=== PATIENT | female | born 1990 | race Caucasian/White ===

== ENCOUNTER 2022-07-22 05:54 | Inpatient (IN) | payer BC ==
[2022-07-22] MEDS ORDERED: METHYLERGONOVINE 0.2 MG/ML 1 ML AMP IM PRN (06:13)
[2022-07-22] MEDS ORDERED: LIDOCAINE 0.5% (PF) 5 MG/ML (50 ML SDV) SQ PRN (06:13)
[2022-07-22] MEDS ORDERED: TRANEXAMIC ACID IN NACL,ISO-OS 1,000 MG in EMPTY BAG 1 BAG IV PRN (06:13)
[2022-07-22] MEDS ORDERED: miSOPROStoL 200 MCG TAB PO PRN (06:13)
[2022-07-22] MEDS ORDERED: TERBUTALINE 1 MG/ML VIAL SQ PRN (06:13)
[2022-07-22] MEDS ORDERED: CARBOPROST TROMETHAMINE 250 MCG/ML 1 ML AMP IM PRN (06:13)
[2022-07-22] MEDS ORDERED: OXYTOCIN 10 UNIT/ML 1 ML VIAL IM PRN (06:13)
[2022-07-22 06:22] VITALS: RESP 16
[2022-07-22] MEDS: LACTATED RINGERS 1,000 ML IV SCH ×2 (06:25→20:21)
[2022-07-22] MEDS: OXYTOCIN 30 UNITS/500 ML NS 30 UNIT in SALINE 1 500ML.BAG IV SCH ×3 (06:38→17:47)
[2022-07-22 06:40] LABS: Basophils # (A) 0.1 k/uL (0-0.2); Basophils % (A) 1 %; Eosinophils # (A) 0.2 k/uL (0-0.7); Eosinophils % (A) 1 %; HGB 12.7 gm/dL (11.4-16.0); Lymphocytes # (A) 2.2 k/uL (1.0-4.8); Lymphocytes % (A) 18 %; MCHC 33.3 g/dL (31.0-37.0); Mean Platelet Volume 7.8; Monocytes # (A) 0.8 k/uL (0-1.0); Monocytes % (A) 6 %; Neutrophils # (A) 9.2 k/uL (1.3-7.7); Neutrophils % (A) 72 %; Platelet Count 215 k/uL (150-450); RBC 3.84 m/uL (3.80-5.40); RDW 12.8 % (11.5-15.5); WBC 12.8 k/uL (3.8-10.6)
--- NOTE | 2022-07-22 06:58 | P.HPOB ---
History of Present Illness H&P Date: 07/22/22 Chief Complaint: Here for induction of labor at 40-3/7 weeks', favorable cervix This is a 31-year-old female 2 para 0010 EDC 07/19/2022 at 40-3/7 weeks' gestation who presents today for induction with favorable cervix. Fetus is been active throughout the . She denies fluid leakage or vaginal bleeding. Past medical history is negative. Past surgical history D&C in the past for miscarriage. Current medications vitamins daily. ALLERGIES none known. Family history significant for stroke, diabetes, hypertension, autism. Social history patient is , she has never been a smoker, she denies alcohol or drug use. history significant for blood type O+, rubella status immune. Pap smear, VDRL testing, urine culture, gonorrhea and chlamydia cultures, hepatitis B surface antigen, HIV testing, group B strep cultures all negative. One-hour Glucola 109. On exam patient is 5 foot 5 inches, 189 pounds, blood pressure 116/71. The general physical exam is within normal limits. The cervix is 3 cm dilated, 70% effaced, -2 station, vertex presentation. Artificial amniorrhexis reveals clear fluid. heart rate is in the 130s with frequent accelerations consistent with reactive NST. Irregular uterine contractions are noted. Impression: 40-3/7 weeks intrauterine , favorable cervix, here for induction of labor. All signs reassuring. Plan: Oxytocin per hospital protocol. Close maternal and surveillance. Analgesic options reviewed. Anticipate normal spontaneous vaginal delivery. Review of Systems Constitutional: Reports as per HPI Past Medical History Past Medical History: No Reported History History of Any Multi-Drug Resistant Organisms: None Reported Additional Past Surgical History / Comment(s): D&C Past Anesthesia/Blood Transfusion Reactions: No Reported Reaction Past Psychological History: No Psychological Hx Reported Smoking Status: Never smoker Past Drug Use History: None Reported Medications and Allergies Home Medications Medication Instructions Recorded Confirmed Type Vit No.179/Iron/Folic 1 each PO DAILY 07/22/22 07/22/22 History [ Tablet] Allergies Allergy/AdvReac Type Severity Reaction Status Date / Time No Known Allergies Allergy Verified 07/22/22 06:12 Exam Vital Signs Temp Pulse Resp BP Pulse Ox 07/22/22 06:11 96.8 F L 96 16 116/71 98 Intake and Output 07/21/22 07/21/22 07/22/22 14:59 22:59 06:59 Other: Weight 85.729 kg See dictation under HPI. Results Result Diagrams: 07/22/22 06:20 Abnormal Lab Results - Last 24 Hours (Table) 07/22/22 Range/Units 06:20 WBC 12.8 H (3.8-10.6) k/uL Neutrophils # 9.2 H (1.3-7.7) k/uL Assessment and Plan Assessment: 40-3/7 weeks intrauterine , here for induction of labor. All signs reassuring. Plan: Oxytocin per hospital protocol. Close maternal and surveillance. Analgesic options reviewed. Anticipate normal spontaneous vaginal delivery. Time with Patient: Less than 30
--- NOTE | 2022-07-22 17:14 | P.PROBDLV ---
Vaginal Delivery Note - . Vaginal Delivery Note: This is a 31-year-old female 2 para 0010 EDC 07/19/2022 at 40-3/7 weeks' gestation who presented for induction with favorable cervix. Group B strep cultures negative, blood type O positive, rubella status immune. Please see my dictated history and physical for details. Artificial amniorrhexis revealed clear fluid. Oxytocin was started and titrated per hospital protocol. Epidural was placed per her request. Patient progressed well through the first stage of labor and became completely dilated at 1635 hrs. Perineal body was prepped and draped in usual sterile fashion. With excellent maternal expulsive efforts the 's head delivered occiput anterior and he restituted accordingly. There was a tight nuchal cord that was reduced on the perineum. The left or anterior shoulder was delivered easily from underneath the pubic symphysis at which time the oropharynx, nasopharynx, and external nares were all bulb suctioned. Patient was officially delivered of a liveborn male infant at 1655 hours. Umbilical cord was doubly clamped and ligated, he was handed to waiting nurses for evaluation where scores of 48 and 9 at one and 5 and 10 minutes respectively were given. Placenta delivered spontaneously, it was inspected and noted to be intact with trivascular cord at 1659 hrs. Uterus is then massaged. Oxytocin was given. Careful inspection of the cervix, vagina, perineum, periurethral, and perirectal areas revealed a small midline first-degree laceration, easily repaired in the usual fashion using the peak suture. Total estimated blood loss 250 mL's. Fundus is firm and in the midline upon completion of delivery. 's weight 7 lbs. 13 oz. or 3550 g. Patient and her are requesting circumcision for their son.
[2022-07-22] MEDS ORDERED: BENZOCAINE/MENTHOL SPRAY 1 GM/SPRAY AEROSOL TOPICAL PRN (17:15)
[2022-07-22] MEDS ORDERED: ZOLPIDEM 5 MG TAB PO PRN (17:15)
[2022-07-22] MEDS ORDERED: diphenhydrAMINE 50 MG CAP PO PRN (17:15)
[2022-07-22] MEDS ORDERED: diphenhydrAMINE 25 MG CAP PO PRN (17:15)
[2022-07-22] MEDS ORDERED: SIMETHICONE 80 MG CHEWABLE PO PRN (17:15)
[2022-07-22] MEDS ORDERED: LANOLIN CREAM 5 GM TUBE TOPICAL PRN (17:15)
[2022-07-22] MEDS ORDERED: diphenhydrAMINE 50 MG/ML 1 ML VIAL IVP PRN ×2 (17:15)
[2022-07-22] MEDS ORDERED: HYDROCORTISONE 2.5% RECTAL CREAM 30 GM TUBE RECTAL PRN (17:15)
[2022-07-22] MEDS: SENNOSIDES-DOCUSATE SODIUM 1 EACH TAB PO SCH (19:55)
[2022-07-22] MEDS: IBUPROFEN 600 MG TAB PO SCH (20:00)
[2022-07-23] MEDS: IBUPROFEN 600 MG TAB PO SCH ×3 (01:17→15:29)
[2022-07-23 07:31] LABS: Basophils # (A) 0.1 k/uL (0-0.2); Basophils % (A) 0 %; Eosinophils # (A) 0.2 k/uL (0-0.7); Eosinophils % (A) 1 %; HGB 11.4 gm/dL (11.4-16.0); Lymphocytes # (A) 2.3 k/uL (1.0-4.8); Lymphocytes % (A) 13 %; MCH 33.5 pg (25.0-35.0); MCHC 33.5 g/dL (31.0-37.0); MCV 100.1 fL (80.0-100.0); Mean Platelet Volume 7.8; Monocytes % (A) 6 %; Neutrophils # (A) 13.8 k/uL (1.3-7.7); Neutrophils % (A) 78 %; Platelet Count 216 k/uL (150-450); RBC 3.39 m/uL (3.80-5.40); RDW 12.9 % (11.5-15.5); WBC 17.6 k/uL (3.8-10.6)
[2022-07-23] MEDS: SENNOSIDES-DOCUSATE SODIUM 1 EACH TAB PO SCH (08:12)
[2022-07-23 08:44] VITALS: BP 102/69; TEMP 97.7
--- NOTE | 2022-07-23 08:58 | P.DS ---
Providers Date of admission: 07/22/22 05:54 Expected date of discharge: 07/23/22 Attending physician: Kristina Jimenez Primary care physician: Stated None Hospital Course: This is a 31-year-old female 2 para 0010 presented at 40-3/7 weeks for induction. is unremarkable, group B strep cultures negative, blood type O positive, rubella status immune. Please see my dictated history and physical for details. With oxytocin augmentation and the aid of an epidural, she went on to deliver vaginally a liveborn male with scores of 48 and 9 at one and 5 and 10 minutes. Infant weighed 7 lbs. 13 oz., 3550 g, with a tight nuchal cord 1. There was a small first-degree perineal laceration easily repaired. Please see my dictated delivery note for details. This morning the patient is doing well. She is voiding, ambulating, passing flatus without difficulty. Vital signs are stable and she is afebrile. infant is doing well, circumcision has been performed. Vital signs are stable and she is afebrile. Fundus is firm, midline, symmetric, 18 week size. Extremities are negative for edema. Patient will follow-up with me in the office in 6 weeks. I have reminded her no intercourse, tampons or douching. She will use [id number] Advil or Aleve, or Motrin as needed for pain. She will call with any fevers shakes or chills, foul smelling or copious lochia, with the passage of large blood clots, or indeed with any concerns. Assessment: Doing well first day Patient Condition at Discharge: Good Plan - Discharge Summary Discharge Rx Participant: No New Discharge Prescriptions: No Action Vit No.179/Iron/Folic [ Tablet] 1 each PO DAILY Discharge Medication List Vit No.179/Iron/Folic [ Tablet] 1 each PO DAILY 07/22/22 [History] Follow up Appointment(s)/Referral(s): Kristina Jimenez MD [STAFF PHYSICIAN] - 6 Weeks Discharge Disposition: HOME SELF-CARE
[2022-07-23 15:21] VITALS: PULSE 97
== END 2022-07-23 17:57 | disposition home or self-care (01) | DRG 807 ==
LOC: 4FBP 05:54
PROVIDERS: ADMIT Obstetrics & Gynecology; ATTEND Obstetrics & Gynecology
PROC: 10907ZC Drainage of Amniotic Fluid, Therapeutic from Products of Conception, Via Natural or Artificial Opening (ICD-10-PCS; principal; 2022-07-22)
PROC: 10E0XZZ Delivery of Products of Conception, External Approach (ICD-10-PCS; principal; 2022-07-22)
PROC: 3E033VJ Introduction of Other Hormone into Peripheral Vein, Percutaneous Approach (ICD-10-PCS; principal; 2022-07-22)
PROC: 0HQ9XZZ Repair Perineum Skin, External Approach (ICD-10-PCS; principal; 2022-07-22)
DX: O48.0 Post-term pregnancy (principal); O69.1XX0 Labor and delivery complicated by cord around neck, with compression, not applicable or unspecified; O70.0 First degree perineal laceration during delivery; Z3A.40 40 weeks gestation of pregnancy; Z37.0 Single live birth
CPT/HCPCS: 85025; 86850; 86900; 86901